=== PATIENT | female | born 1975 | race African-American/Black ===

== ENCOUNTER 2017-01-08 19:35 | Emergency (ER) | payer OTHER ==
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
== END 2017-01-08 20:25 | disposition home or self-care (01) ==
LOC: CFTX 19:35
DX: S33.5XXA Sprain of ligaments of lumbar spine, initial encounter (principal); S50.02XA Contusion of left elbow, initial encounter; Z91.013 Allergy to seafood; V49.00XA Driver injured in collision with unspecified motor vehicles in nontraffic accident, initial encounter
CPT/HCPCS: 72100; 73080; 84703; 99284